=== PATIENT | male | born 1995 | race Caucasian/White ===

== ENCOUNTER 2017-11-16 01:57 | Emergency (ER) | payer OTHER ==
[2017-11-16 02:06] VITALS: O2SAT 98
--- NOTE | 2017-11-16 02:43 | ED PDOC ---
HPI: Psych/Substance Abuse Time Seen by Provider: 11/16/17 02:08 Chief Complaint (Nursing): Alcohol Ingestion Chief Complaint (Provider): Alcohol Intoxication, Vomiting History Per: Patient, EMS History/Exam Limitations: intoxication Additional Complaint(s): 22 year old male presents to the ED via EMS for alcohol intoxication. Patient admits to two episodes of non-bloody, non-bilious vomiting prior to arrival. When asked about how much he drank, he replied, "way too much." Currently, he only complains of nausea. Denies trauma and head injury. Due to intoxication, some of the patient's hx is limited. PMD: none provided Past Medical History Reviewed: Historical Data, Nursing Documentation, Vital Signs Vital Signs: Last Vital Signs Temp 98.2 F 11/16/17 02:04 Pulse 86 11/16/17 02:04 Resp 18 11/16/17 02:04 BP 130/80 11/16/17 02:04 Pulse Ox 98 11/16/17 02:04 - Medical History PMH: No Chronic Diseases - Surgical History Surgical History: No Surg Hx - Family History Family History: States: Unknown Family Hx - Social History Current smoker - smoking cessation education provided: No Alcohol: Social Drugs: Denies - Allergies Allergies/Adverse Reactions: Allergies Allergy/AdvReac Type Severity Reaction Status Date / Time No Known Allergies Allergy Verified 11/16/17 02:04 Review of Systems ROS Statement: Except As Marked, All Systems Reviewed And Found Negative Gastrointestinal: Positive for: Nausea, Vomiting (x2 episodes non-bloody, non- bilious) Physical Exam - Reviewed Nursing Documentation Reviewed: Yes Vital Signs Reviewed: Yes - Physical Exam Comments: GENERAL APPEARANCE: Patient is awake, alert, in no acute distress. Appears intoxicated, with slurred speech and alcohol on breath. SKIN: Warm, dry; (-) cyanosis HEAD: (-) scalp swelling, (-) scalp tenderness. EYES: (+) bilateral conjunctival injection ENMT: Mucous membranes moist. Airway patent: (-) stridor. NECK: Supple, FROM HEART AND CARDIOVASCULAR: (-) irregularity CHEST AND RESPIRATORY: (-) rales, (-) rhonchi, (-) wheezes; breath sounds equal. Respirations even and nonlabored. ABDOMEN: Soft, (-) distention, (-) tenderness, (-) guarding. NEURO AND PSYCH: Mental status as above. Affect: flat. (-) facial asymmetry - ECG O2 Sat by Pulse Oximetry: 98 (RA) Pulse Ox Interpretation: Normal Medical Decision Making Medical Decision Making: Time: 204 Initial Impression: alcohol intoxication, nausea and vomiting Initial Plan: --Alcohol serum --Accucheck --Zofran 8mg PO ODT --Re-evaluation --Clinical Sobriety 244 Accucheck: 123 Serum Alcohol: 246 0330 Patient sleeping comfortably on re-evaluation, no acute distress noted. 0600 Patient sleeping comfortably. Vitals stable. Patient now AAOx3 and with no complaints at present. Gait steady in ED without assistance. VSS, stable for discharge. Lab / Diagnostic results d/w the patient in great detail. Diagnosis of alcohol intoxication, nausea and vomiting d/w the patient. Based on history, exam and diagnostic results, plan will be for outpatient follow up. Patient was observed in ED for 6 hours with no evidence of neurological deterioration. Patient instructed to follow-up with pmd / referral provided / the clinic in 1- 2 days without fail. Return to the emergency room at any time for any new or worsening symptoms. Patient states he fully agrees with and understands discharge instructions. States that he agrees with the plan and disposition. Verbalized and repeated discharge instructions and plan. I have given the patient opportunity to ask any additional questions. Scribe Attestation: Documented by Jennifer Campbell, acting as a scribe for Keli Bentley PA-C. Provider Scribe Attestation: All medical record entries made by the Scribe were at my direction and personally dictated by me. I have reviewed the chart and agree that the record accurately reflects my personal performance of the history, physical exam, medical decision making, and the department course for this patient. I have also personally directed, reviewed, and agree with the discharge instructions and disposition. Disposition - Clinical Impression Clinical Impression: Alcohol intoxication, Nausea and vomiting - Patient ED Disposition Is Patient to be Admitted: No Counseled Patient/Family Regarding: Studies Performed, Diagnosis, Need For Followup - Disposition Referrals: [facility] [Outside] Disposition: Routine/Home Disposition Time: 08:30 Condition: STABLE Additional Instructions: The emergency medical care you received today was directed towards the acute presenting symptoms. If you were prescribed any medication, please fill it and give as directed. It may take several days for your symptoms to resolve. Return to the Emergency Department at any time if symptoms worsen, do not improve, or if any other problems arise. Please contact your doctor in 2 days for re-evaluation and follow up / or call one of the physicians/clinics you have been referred to that are listed on the Patient Visit Information form that is included in your discharge packet. Bring any paperwork you were given at discharge with you along with any medications to your follow up visit. Our treatment cannot replace ongoing medical care by a primary care provider (PCP) outside of the emergency department. Instructions: Alcohol Use - When Is Drinking a Problem?, Nausea and Vomiting, Adult, Effects of Alcohol on Your Health Forms: [employer] ([employer]) Print Language: EGYPTIAN - POA Present On Arrival: None Results - Lab Results Lab Results: 11/16/17 11/16/17 02:22 02:16 POC Glucose (mg/dL) 123 H Alcohol, Quantitative 246 H
[2017-11-16 08:41] VITALS: BP 120/78; PULSE 78; RESP 19; TEMP 97
== END 2017-11-16 08:37 | disposition home or self-care (01) ==
LOC: H.ER 01:57
DX: F10.129 Alcohol abuse with intoxication, unspecified (principal); R11.2 Nausea with vomiting, unspecified